=== PATIENT | male | born 1970 | race Caucasian/White ===

== ENCOUNTER → 2021-10-25 | Outpatient (CLI) | payer OTHER | LOC: KOH-I 10:30 | DX: R74.01 Elevation of levels of liver transaminase levels (principal) | CPT/HCPCS: 76705 ==

== ENCOUNTER → 2022-02-01 | Outpatient (CLI) | payer OTHER | LOC: KOH-I 01-02 15:00 | DX: R93.89 Abnormal findings on diagnostic imaging of other specified body structures (principal); E04.2 Nontoxic multinodular goiter | CPT/HCPCS: 76536 ==